=== PATIENT | female | born 1980 | race Caucasian/White ===

== ENCOUNTER 2018-08-28 05:44 | Day surgery (SDC) | payer OTHER ==
[2018-08-28] MEDS ORDERED: ACETAMINOPHEN 500 MG TAB PO ONE (05:59)
[2018-08-28] MEDS ORDERED: PHENAZOPYRIDINE HCL 200 MG TAB PO ONE (05:59)
[2018-08-28] MEDS ORDERED: ceFAZolin 2 GM/DEXTROSE 100 ML IV ONE (05:59)
[2018-08-28] MEDS ORDERED: GABAPENTIN 300 MG CAP PO ONE (05:59)
[2018-08-28] MEDS ORDERED: LR 1,000 ML IV ONE (06:01)
[2018-08-28] MEDS ORDERED: BUPIVACAINE/EPI 0.5% 30 ML SDV ONE (06:39)
[2018-08-28] MEDS ORDERED: SCOPOLAMINE HYDROBROMIDE 1 MG/3 DAYS PATCH TD ONE ×2 (06:42→07:05)
[2018-08-28] MEDS ORDERED: MIDAZOLAM 2 MG/2 ML VIAL IVP ONE (06:42)
--- NOTE | 2018-08-28 06:52 | PDANEPAE ---
ANE Past Medical History - Cardiovascular History Hx Hypertension: No Hx Arrhythmias: No Hx Chest Pain: No Hx Coronary Artery / Peripheral Vascular Disease: No Hx CHF / Valvular Disease: No Hx Palpitations: No - Pulmonary History Hx COPD: No Hx Asthma/Reactive Airway Disease: No Hx Recent Upper Respiratory Infection: No Hx Oxygen in Use at Home: No Hx Sleep Apnea: No Sleep Apnea Screening Result - Last Documented: Negative - Neurologic History Hx Cerebrovascular Accident: No Hx Seizures: No Hx Dementia: No - Endocrine History Hx Diabetes: No - Renal History Hx Renal Disorders: No - Liver History Hx Hepatic Disorders: No - Neurological & Psychiatric Hx Hx Neurological and Psychiatric Disorders: No Neurological / Psychiatric History Comment: ANXIETY - Cancer History Hx Cancer: No - Congenital Disorder History Hx Congenital Disorders: No - GI History Hx Gastrointestinal Disorders: No - Other Health History Other Health History: ENDOMETRIOSIS - Chronic Pain History Chronic Pain: No - Surgical History Prior Surgeries: POLYPECTOMY. IVF WITH EGG REMOVAL ANE Review of Systems Review of Systems: - Exercise capacity METS (RN): 5 METS ANE Patient History - Allergies Allergies/Adverse Reactions: No Allergies [NKDA] Allergy (Verified 08/27/18 15:23) - Home Medications Home medications: home medication list seen and reviewed - NPO status NPO Status: no food or drink >8 hours - Anes Hx Anes Hx: no prior problems - Smoking Hx Smoking Status: Smoker current status UNK - Family Anes Hx Family Anes Hx: none Family Hx Anesthesia Complications: NONE ANE Labs/Vital Signs - Vital Signs Vital Signs: reviewed preoperatively; see RN documention for details Height: 162.56 cm Weight: 58.06 kg ANE Physical Exam - Airway Neck exam: FROM Mallampati Score: Class 1 Mouth exam: normal dental/mouth exam - Pulmonary Pulmonary: clear to auscultation - Cardiovascular Cardiovascular: regular rate and rhythym - ASA Status ASA Status: II ANE Anesthesia Plan Anesthesia Plan: general endotracheal anesthesia
[2018-08-28] MEDS ORDERED: PROPOFOL 200 MG/20 ML VIAL ONE (06:55)
[2018-08-28] MEDS ORDERED: fentaNYL 100 MCG/2 ML INJ ONE (06:55)
[2018-08-28] MEDS ORDERED: ROCURONIUM 50 MG/5 ML VIAL ONE (06:57)
[2018-08-28] MEDS ORDERED: DEXAMETHASONE 4 MG/ML VIAL ONE (06:58)
--- NOTE | 2018-08-28 07:09 | PDHPUP ---
History & Physical Update H&P update statement: This history and physical update is based on an assessment of the patient which was completed after admission or registration (within 24 hours), but prior to the surgery/procedure. H&P update: H&P reviewed & patient examined, no change in patient's condition since H&P completed
[2018-08-28] MEDS ORDERED: MIDAZOLAM 2 MG/2 ML VIAL ONE (07:20)
[2018-08-28] MEDS ORDERED: METOCLOPRAMIDE 10 MG/2 ML VIAL ONE (07:30)
[2018-08-28] MEDS ORDERED: RANITIDINE 50 MG/2 ML VIAL ONE (07:31)
[2018-08-28] MEDS ORDERED: HYDROmorphONE/DILAUDID 2 MG/ML INJ ONE (07:36)
[2018-08-28] MEDS ORDERED: KETOROLAC 30 MG/1 ML SDV ONE (07:47)
[2018-08-28] MEDS ORDERED: ONDANSETRON 4 MG/2 ML VIAL ONE (07:48)
[2018-08-28] MEDS ORDERED: PROPOFOL/EMULSION 500 MG/50 ML BOTTLE IV ONE (07:56)
[2018-08-28] MEDS ORDERED: METHYLENE BLUE 0.5% 50 MG/10 ML AMP ONE (08:00)
[2018-08-28] MEDS ORDERED: NEOSTIGMINE METHYLSULFATE 5 MG/5 ML SYR ONE (08:21)
[2018-08-28] MEDS ORDERED: GLYCOPYRROLATE 0.2 MG/1 ML VIAL ONE (08:21)
[2018-08-28] MEDS ORDERED: ONDANSETRON 4 MG/2 ML VIAL IVP PRN (08:23)
[2018-08-28] MEDS ORDERED: PROMETHAZINE HCL 25 MG/ML INJ IVP PRN (08:23)
[2018-08-28] MEDS ORDERED: NALOXONE HCL 0.4 MG/ML INJ IVP PRN (08:23)
[2018-08-28] MEDS ORDERED: LR 500 ML IV PRN (08:23)
[2018-08-28] MEDS ORDERED: METOCLOPRAMIDE 10 MG/2 ML VIAL IVP PRN (08:23)
[2018-08-28] MEDS ORDERED: DEXAMETHASONE 4 MG/ML VIAL IVP PRN (08:23)
[2018-08-28] MEDS ORDERED: ACETAMINOPHEN 500 MG TAB PO PRN (08:23)
[2018-08-28] MEDS ORDERED: HYDROmorphONE/DILAUDID 2 MG/ML INJ IVP PRN (08:23)
[2018-08-28] MEDS ORDERED: MEPERIDINE 25 MG/0.5 ML AMP IVP PRN (08:23)
[2018-08-28] MEDS ORDERED: fentaNYL 100 MCG/2 ML INJ IVP PRN (08:23)
[2018-08-28] MEDS ORDERED: DIAZEPAM 5 MG/ML 1 ML SYR IVP PRN (08:23)
[2018-08-28] MEDS ORDERED: ALBUTEROL 3 ML DEYVIAL IH PRN (08:23)
[2018-08-28] MEDS ORDERED: oxyCODONE IR 5 MG TAB PO PRN (08:23)
--- NOTE | 2018-08-28 09:04 | POSTOPPROG ---
Post Op Note Date of Operation: 08/28/18 Surgeon: Robert Riddle Amphibian Crewmember: Laura Roberts Anesthesiologist: Ayanna Anesthesia: GET(General Endotracheal) Pre-op Diagnosis: Endometriosis Post-op Diagnosis: Same Procedure: Robotic excision of endo, bilat ureterolysis, chromotubation Findings: Endo, patent tubes Inf/Abcess present in the surg proc area at time of surgery?: No Complications: None Bowel Protocol: N/A Clean Closure Performed: N/A
--- NOTE | 2018-08-28 09:25 | POSTANESTH ---
Post Anesthetic Evaluation Cardiovascular Status: Normal, Stable Respiratory Status: Normal, Stable Level of Consciousness/Mental Status: Can Participate in Eval Pain Control: Adequate, Prn Tx Ordered Nausea/Vomiting Control: Adequate, Prn Tx Ordered Complications Possibly Related to Anesthesia: None Noted
--- NOTE | 2018-08-28 10:20 | GOP ---
[f rep st] OPERATIVE REPORT DATE OF OPERATION: 08/28/2018 SURGEON: Robert Riddle MD NAME PLATE STAMPING MACHINE OPERATOR: Laura Roberts CFA. ANESTHESIA: General. PREOPERATIVE DIAGNOSIS: 1. Endometriosis. 2. Mid cycle pain. POSTOPERATIVE DIAGNOSIS: 1. Endometriosis. 2. Mid cycle pain. 3. Subserous uterine fibroid. 4. Left ovarian mass. 5. Patent fallopian tubes. PROCEDURE PERFORMED: 1. Robotic excision of endometriosis in anterior and posterior cul-de-sac, bilateral pelvic side wal ls. 2. Excision of rectal lesion. 3. Excision of sigmoid lesion. 4. Bilateral ureterolysis. 5. Myomectomy. 6. Excision of left ovarian neoplasm. 7. Bilateral ovariopexy. 8. Chromotubation. FINDINGS: The patient had multiple areas of endometriosis in the anterior cul-de-sac as well as post erior cul-de-sac and both pelvic sidewalls. She had several lesions on the right ovary with more on the left including a surface lesion. She had a subserosal fibroid approximately 1 cm on the left fun gela surface. She had adhesions of the sigmoid and rectum, two portions of the left adnexa. There wa s no evidence of endometriosis in the upper abdomen, diaphragms, liver, gallbladder or stomach. Both tubes actively spilled dye. SPECIMENS: 1. Pelvic peritoneum with endometriosis. 2. Sigmoid lesion. 3. Rectal lesion. 1. Portion of left ovary. 4. ESTIMATED BLOOD LOSS: Scant. DESCRIPTION OF PROCEDURE: The patient was taken to the operating room where she was identified. Gen eral anesthesia was administered and found to be adequate. She was placed in the lithotomy position and prepared and draped in the normal sterile fashion. A Alcocer catheter was placed in her bladder. A Hulka tenaculum was placed in the uterus for manipulation. An 8 mm infraumbilical incision was made with the scalpel. The Veress needle with CO2 gas flowing wa s advanced into the peritoneal cavity. The abdomen was then insufflated with carbon dioxide gas. Th e 8 mm trocar followed by the laparoscope were then inserted. The upper abdomen was examined and no evidence of endometriosis was seen. Two lateral ports placed on the right and one on the left under direct visualization. She then was placed in Trendelenburg reposition and the da Samantha robot docked on the left side. The instruments were then brought into the abdominal cavity under direct visualiza tion. The findings were as noted above. The sigmoid and rectal adhesions were taken down sharply to restore normal anatomy. The lesions on the sigmoid and rectum which extended into the muscularis we re excised and sent to Pathology as separate specimens. The anterior cul-de-sac peritoneum with endo metriosis was completely excised. The posterior cul-de-sac peritoneum from the distal rectum up to t he cervix and laterally to the uterosacral ligaments was then completely excised. The lesions on eac h ovary were treated including excision of the neoplasm on the left ovary which required removal of a very small amount of ovarian stroma. A bilateral ovariopexy was then performed by attaching each ov mauricio to the ipsilateral round ligaments near the internal inguinal ring with 3-0 Vicryl Rapide suture. A bilateral ureterolysis was required given the endometriosis overlying both ureters. The peritoneum at the pelvic brims were incised. The ureters were gently dissected free and lateralized off the ov erlying peritoneum from the pelvic brim down to the uterine arteries. Once this was accomplished, th e entire pelvic sidewall peritoneum was completely excised. The pelvis was then irrigated with steri le saline and hemostasis was present. The subserosal fibroid was excised and the surface also hemost atic. The Hulka tenaculum was removed and the José cannula inserted. The chromotubation was perfor med using a dilute solution of methylene blue. Both tubes easily spilled dyed fluid into the pelvis. The pelvis was once again irrigated. The robot was then undocked. The skin was closed with 4-0 Mo nocryl and surgical adhesive. Anesthesia was reversed and the patient taken to the PACU awake, in st able condition. COMPLICATIONS: None. DISPOSITION: Patient stable to PACU. /[id number]/MODL
[2018-08-28] MEDS ORDERED: oxyCODONE IR 5 MG TAB ONE (10:43)
[2018-08-28 11:26] VITALS: BP 101/58
== END 2018-08-28 11:23 | disposition home or self-care (01) ==
LOC: FSGY 05:44
PROVIDERS: ATTEND Obstetrics & Gynecology
PROC: 0DBP4ZZ Excision of Rectum, Percutaneous Endoscopic Approach (ICD-10-PCS; principal; 2018-08-28 07:15)
PROC: 3E0P8KZ Introduction of Other Diagnostic Substance into Female Reproductive, Via Natural or Artificial Opening Endoscopic (ICD-10-PCS; principal; 2018-08-28 07:15)
PROC: 0UB14ZZ Excision of Left Ovary, Percutaneous Endoscopic Approach (ICD-10-PCS; principal; 2018-08-28 07:15)
PROC: 0DBN4ZZ Excision of Sigmoid Colon, Percutaneous Endoscopic Approach (ICD-10-PCS; principal; 2018-08-28 07:15)
PROC: 0TB74ZZ Excision of Left Ureter, Percutaneous Endoscopic Approach (ICD-10-PCS; principal; 2018-08-28 07:15)
PROC: 0DCW4ZZ Extirpation of Matter from Peritoneum, Percutaneous Endoscopic Approach (ICD-10-PCS; principal; 2018-08-28 07:15)
PROC: 0UCF4ZZ Extirpation of Matter from Cul-de-sac, Percutaneous Endoscopic Approach (ICD-10-PCS; principal; 2018-08-28 07:15)
PROC: 0TB64ZZ Excision of Right Ureter, Percutaneous Endoscopic Approach (ICD-10-PCS; principal; 2018-08-28 07:15)
PROC: 8E0W4CZ Robotic Assisted Procedure of Trunk Region, Percutaneous Endoscopic Approach (ICD-10-PCS; principal; 2018-08-28 07:15)
DX: N80.3 Endometriosis of pelvic peritoneum (principal); D25.2 Subserosal leiomyoma of uterus; N94.10 Unspecified dyspareunia; N97.9 Female infertility, unspecified; E72.12 Methylenetetrahydrofolate reductase deficiency
CPT/HCPCS: J0690; J1100; J1170; J1885; J2250; J2405; J2704; J2710; J2765; J2780; J3010; Q9968